=== PATIENT | female | born 1960 | race Caucasian/White ===

== ENCOUNTER 2024-08-08 06:06 | Day surgery (SDC) | payer BC ==
[2024-08-07 12:49] LABS: Absolute Basophils 0.1 K/uL (0-0.5); Absolute Eosinophils 0.3 K/uL (0-0.5); Absolute Lymphocytes (CBC) 2.3 K/uL (0.7-4.9); Absolute Monocytes 0.8 K/uL (0.1-1.3); Absolute Neutrophil 4.2 K/uL (1.8-8.0); Basophils % 0.8 % (0-1.3); Eosinophils % 3.7 % (0-4.4); Hematocrit 39.6 % (36.0-45.0); Hemoglobin 13.3 g/dL (12.0-15.0); Lymphocytes % 30.1 % (15.3-44.8); MCH 29.8 pg (27.0-35.0); MCHC 33.6 g/dL (32.0-36.0); MCV 88.8 fL (80-100); MPV 8.4 fL (7.6-11.3); Monocytes % 10.3 % (3.3-12.3); Neutrophils % 55.1 % (41.7-73.7); Platelets 253 thou/uL (152-406); RBC Red Blood Cell Count 4.46 M/uL (3.86-4.86); Red Cell Distribution Width 13.3 % (12.1-15.2)
[2024-08-07 13:01] LABS: Anion Gap 7.8 mEq/L (5.0-15.0); Potassium 3.8 mEq/L (3.5-5.1)
--- NOTE | 2024-08-07 13:27 | RAD REPORT ---
EXAMINATION: TWO VIEW CHEST XR CLINICAL INDICATION: Female, 64 years old. [facility] Hypertension pre-op TECHNIQUE: 2 view radiographs of the chest were performed. COMPARISON: No prior exam. FINDINGS: The lungs are well inflated and clear. No pneumothorax or sizable effusion. The heart is normal in si ze. Mediastinal contours are unremarkable. IMPRESSION: No acute or significant abnormalities.
[2024-08-08] MEDS ORDERED: Ringers Lactate 1,000 ML IV ONE (06:23)
[2024-08-08] MEDS ORDERED: propofoL 200 MG/20 ML VIAL IV ONE (07:16)
[2024-08-08] MEDS ORDERED: ONDANSETRON 4 MG/2 ML VIAL ONE (07:16)
[2024-08-08] MEDS ORDERED: FENTANYL CITR 100 MCG/2 ML ONE (07:16)
[2024-08-08] MEDS ORDERED: LIDOCAINE 2% MPF 5 ML VIAL ONE (07:17)
[2024-08-08] MEDS ORDERED: MIDAZOLAM HCL 2 MG/2 ML INJ ONE (07:17)
[2024-08-08] MEDS ORDERED: CEFAZOLIN SODIUM 1 GM/VIAL ONE (07:34)
--- NOTE | 2024-08-08 08:21 | P.BOP ---
Preoperative diagnosis: Perianal abscess Postoperative diagnosis: same Primary procedure: EUA, anoscopyc, rigid proctoscopy Secondary procedure: I &D perianal abscess Estimated blood loss: <10cc Specimen: pus and indurated tissue Findings: abscess Anesthesia: General Complications: None Transferred to: Recovery Room Condition: Good
[2024-08-08] MEDS: ONDANSETRON 4 MG/2 ML VIAL ONE (08:43)
[2024-08-08] MEDS: DIPHENHYDRAMINE 50 MG/ML VIAL ONE (09:05)
[2024-08-08 10:18] VITALS: BP 129/70; TEMP 97.8; O2SAT 99
--- NOTE | 2024-08-08 13:49 | EKG ---
Test Date: 2024-08-07 Test Time: 12:21:29 [employer] Checker: ROSAMARIA MEASUREMENT RESULTS: Intervals: Rate: 74 WA: 182 QRSD: 90 QT: 408 QTc: 452 [place]: P: 49 WA: 182 QRS: -8 T: 29 INTERPRETIVE STATEMENTS: Normal sinus rhythm Normal ECG No previous ECG available for comparison Electronically Signed On 08-08-24 13:08:46 CDT by Corby Garcia
== END 2024-08-08 10:32 | disposition home or self-care (01) ==
LOC: OR 06:06
PROVIDERS: ATTEND Surgery
PROC: 0DJD8ZZ Inspection of Lower Intestinal Tract, Via Natural or Artificial Opening Endoscopic (ICD-10-PCS; 2024-08-08)
PROC: 0D9Q0ZX Drainage of Anus, Open Approach, Diagnostic (ICD-10-PCS; principal; 2024-08-08 07:30)
DX: K61.0 Anal abscess (principal)
CPT/HCPCS: 93005; 87070; 85025; 80048; 36415; 87205; 88304; 87075; 71046; 46999; 45300; J2704; J1200; J2001; J2250; J3010; J2405 ×2; J7120; J0690; 87077; 87185; 87186